=== PATIENT | male | born 2000 | race Two or more races ===

== ENCOUNTER 2023-05-01 06:25 | Emergency (ER) | payer MEDICAID, OTHER ==
[~2023-05-01] VITALS: Ht 175.3 cm; Wt 74.8 kg
[2023-05-01 06:36] VITALS: BP 113/80; TEMP 98.1; O2SAT 97
== END 2023-05-01 06:53 | disposition left against medical advice (07) ==
LOC: ER 06:27
DX: T40.2X1A Poisoning by other opioids, accidental (unintentional), initial encounter (principal); Y92.89 Other specified places as the place of occurrence of the external cause